=== PATIENT | male | born 1995 | race Caucasian/White ===

== ENCOUNTER 2019-06-04 15:24 | Emergency (ER) | payer BC, OTHER ==
[2019-06-04] MEDS ORDERED: Bacitracin Oint 1 GM U/D Packet TOP ONE (15:30)
[2019-06-04] MEDS ORDERED: Lidocaine 1% PF 2 ML SDV INJECT ONE (15:30)
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
[2019-06-04] MEDS ORDERED: Lidocaine 1% 10 ML MDV INJECT ONE (16:11)
--- NOTE | 2019-06-04 17:13 | CR ---
Mandible: 4 views of the mandible were obtained. Comparison: No previous study. No discrete fracture or other bony abnormality is appreciated. Impression: 1. No abnormality is appreciated on mandible study. If suspicions remain for mandibular fracture, CT could then be considered. Diagnostic code #1 This report was dictated in MDT
== END 2019-06-04 18:05 | disposition home or self-care (01) ==
LOC: MW.ED 15:24
DX: S01.81XA Laceration without foreign body of other part of head, initial encounter (principal); V89.2XXA Person injured in unspecified motor-vehicle accident, traffic, initial encounter
CPT/HCPCS: 12014; 70100; 99283; J2001; 99282

== ENCOUNTER 2020-06-10 17:12 | Emergency (ER) | payer OTHER ==
[2020-06-10] MEDS ORDERED: Diphtheria,Pertussis(Acell),Tetanus Vaccine 0.5 ML Syringe IM ONE (17:36)
[2020-06-10] MEDS ORDERED: Octyl 2-Cyanoacrylate 1 APPLIC TUBE TOP ONE (17:36)
--- NOTE | 2020-06-10 17:41 | EDM.PDOC ---
ED HPI GENERAL MEDICAL PROBLEM - General Chief Complaint: Head Injury Stated Complaint: CUT ON HEAD Time Seen by Provider: 06/10/20 17:21 Source of Information: Reports: Patient History Limitations: Reports: No Limitations - History of Present Illness INITIAL COMMENTS - FREE TEXT/NARRATIVE: Is a 25-year-old male presents today for laceration to the left side of his face. Patient dates he was working on a car when he rolled her foot and scraped side of his face. Patient denies any LOC headaches pain around the eyes vision changes or other complaints. Patient is unsure of his tetanus status. Head Pain Score (Numeric/FACES): 1 - Related Data Allergies Allergy/AdvReac Type Severity Reaction Status Date / Time No Known Allergies Allergy Verified 06/10/20 17:27 Home Meds: Home Meds . [No Known Home Meds] 06/10/20 [History] Past Medical History - Past Health History Medical/Surgical History: Denies Medical/Surgical History HEENT History: Reports: None Cardiovascular History: Reports: None Respiratory History: Reports: None Gastrointestinal History: Reports: None Genitourinary History: Reports: None Musculoskeletal History: Reports: None Neurological History: Reports: None Psychiatric History: Reports: None Endocrine/Metabolic History: Reports: None Hematologic History: Reports: None Immunologic History: Reports: None Oncologic (Cancer) History: Reports: None Dermatologic History: Reports: None - Infectious Disease History Infectious Disease History: Reports: Chicken Pox - Past Surgical History Head Surgeries/Procedures: Reports: None HEENT Surgical History: Reports: Tonsillectomy Cardiovascular Surgical History: Reports: None Respiratory Surgical History: Reports: None GI Surgical History: Reports: None Male Surgical History: Reports: None Endocrine Surgical History: Reports: None Neurological Surgical History: Reports: None Musculoskeletal Surgical History: Reports: None Oncologic Surgical History: Reports: None Dermatological Surgical History: Reports: None Social & Family History - Family History Family Medical History: No Pertinent Family History - Caffeine Use Caffeine Use: Reports: Coffee, Soda - Recreational Drug Use Recreational Drug Use: No ED ROS GENERAL - Review of Systems Review Of Systems: See Below Constitutional: Reports: No Symptoms HEENT: Reports: No Symptoms Respiratory: Reports: No Symptoms Cardiovascular: Reports: No Symptoms Endocrine: Reports: No Symptoms GI/Abdominal: Reports: No Symptoms : Reports: No Symptoms Musculoskeletal: Reports: No Symptoms Skin: Reports: No Symptoms Neurological: Reports: No Symptoms Psychiatric: Reports: No Symptoms Hematologic/Lymphatic: Reports: No Symptoms Immunologic: Reports: No Symptoms ED EXAM, HEAD INJURY - Physical Exam Exam: See Below Exam Limited By: No Limitations General Appearance: Alert, WD/WN Head: Facial Abrasions. No: Facial Swelling, Facial Tenderness Eyes: Bilateral Eye: EOMI, PERRL Neck: Non-Tender, Full Range of Motion Respiratory: No Respiratory Distress Extremities: Normal Inspection Neurologic: pallet assembler II-XII nml As Tested, Alert, Normal Mood/Affect, Oriented x 3 - Barbara Coma Score Best Eye Response (Barbara): (4) Open Spontaneously Best Verbal Response ([place]): (5) Oriented Best Motor Response ([place]): (6) Obeys Commands ED LACERATION/WOUND & SHAUNA PROC - Laceration/Wound Repair Face Lac/wound length in cm: 2 Appearance: Superficial Distal NVT: Neuro & Vascular Intact Skin Prep: Saline Closed with: Dermabond Course - Vital Signs Last Recorded V/S: Last Vital Signs Temp 98.1 F 06/10/20 17:27 Pulse 69 06/10/20 17:27 Resp 17 06/10/20 17:27 BP 123/65 06/10/20 17:27 Pulse Ox 96 06/10/20 17:27 - Orders/Labs/Meds Orders: Active Orders 24 hr Category Date Time Status Vaccines to be Administered [RC] PER UNIT ROUTINE Care 06/10/20 17:36 Ordered Diphth,Pertuss(Acell),Tet Vac [Boostrix] Med 06/10/20 17:36 Once 0.5 ml IM .ONCE ONE Octyl 2-Cyanoacrylate [Dermabond Mini] Med 06/10/20 17:36 Once 1 applic TOP ONETIME ONE Medication Orders Diphtheria/Tetanus/Acell Pertussis (Diphtheria,Pertussis(Acell),Tetanus Vaccine 0.5 Ml Syringe) 0.5 ml IM .ONCE ONE Stop: 06/10/20 17:37 Octyl Cyanoacrylate (Octyl 2-Cyanoacrylate 1 Applic Tube) 1 applic TOP ONETIME ONE Stop: 06/10/20 17:37 Meds: Medications Generic Name Dose Route Start Last Admin Trade Name Freq PRN Reason Stop Dose Admin Diphtheria/Tetanus/Acell Pertussis 0.5 ml 06/10/20 17:36 Diphtheria,Pertussis(Acell),Tetanus Vaccine 0.5 Ml Syringe IM 06/10/20 17:37 .ONCE ONE Octyl Cyanoacrylate 1 applic 06/10/20 17:36 Octyl 2-Cyanoacrylate 1 Applic Tube TOP 06/10/20 17:37 ONETIME ONE Departure - Departure Time of Disposition: 17:40 Disposition: Home, Self-Care 01 Condition: Good Clinical Impression: Laceration of face - Discharge Information *PRESCRIPTION DRUG MONITORING PROGRAM REVIEWED*: Not Applicable *COPY OF PRESCRIPTION DRUG MONITORING REPORT IN PATIENT CHERY: Not Applicable Instructions: Laceration Care, Adult Referrals: PCP,None [Primary Care Provider] - Additional Instructions: The following information is given to patients seen in the emergency department who are being discharged to home. This information is to outline your options for follow-up care. We provide all patients seen in our emergency department with a follow-up referral. The need for follow-up, as well as the timing and circumstances, are variable depending upon the specifics of your emergency department visit. If you don't have a primary care physician on staff, we will provide you with a referral. We always advise you to contact your personal physician following an emergency department visit to inform them of the circumstance of the visit and for follow-up with them and/or the need for any referrals to a consulting specialist. The emergency department will also refer you to a specialist when appropriate. This referral assures that you have the opportunity for follow-up care with a specialist. All of these measure are taken in an effort to provide you with optimal care, which includes your follow-up. Under all circumstances we always encourage you to contact your private physic marylu who remains a resource for coordinating your care. When calling for follow- up care, please make the office aware that this follow-up is from your recent emergency room visit. If for any reason you are refused follow-up, please contact the [facility] Emergency Department at and asked to speak to the emergency department charge nurse. Please follow up with your primary care physician. If you do not have a primary care physician, see below: [facility] [address] [place] [phone] [facility] [address] [place] [phone] We repaired your laceration with Dermabond. Please do not pick or pull the Dermabond off it will fall off on its own in the next few days. Please keep the area clean and dry. If you suffer any redness or drainage or fevers chills please return to the ED. Sepsis Event Note (ED) - Evaluation Sepsis Screening Result: No Definite Risk - Focused Exam Vital Signs: Vital Signs Temp Pulse Resp BP Pulse Ox 06/10/20 17:27 98.1 F 69 17 123/65 96 - My Orders Last 24 Hours: My Active Orders 06/10/20 17:36 Vaccines to be Administered [RC] PER UNIT ROUTINE Diphth,Pertuss(Acell),Tet Vac [Boostrix] 0.5 ml IM .ONCE ONE Octyl 2-Cyanoacrylate [Dermabond Mini] 1 applic TOP ONETIME ONE - Assessment/Plan Last 24 Hours: My Active Orders 06/10/20 17:36 Vaccines to be Administered [RC] PER UNIT ROUTINE Diphth,Pertuss(Acell),Tet Vac [Boostrix] 0.5 ml IM .ONCE ONE Octyl 2-Cyanoacrylate [Dermabond Mini] 1 applic TOP ONETIME ONE Plan: 25-year-old male who presents today for laceration to the side of his face. Patient is a 4-year-old fell and scraped his face. Patient has no LOC. Patient is up-to-date with tetanus shot at the check in a computer. Patient will have the area Dermabond and will be given strict return precautions.
== END 2020-06-10 18:26 | disposition home or self-care (01) ==
LOC: MW.ED 17:12
DX: S01.81XA Laceration without foreign body of other part of head, initial encounter (principal); Z23 Encounter for immunization; W20.8XXA Other cause of strike by thrown, projected or falling object, initial encounter
CPT/HCPCS: 12011; 90471; 99282; A9270